=== PATIENT | female | born 1970 | race Caucasian/White ===

== ENCOUNTER 2018-07-21 07:37 | Day surgery (SDC) | payer OTHER ==
[~2018-07-21] VITALS: Ht 154.9 cm; Wt 82.7 kg
[2018-07-21 08:20] VITALS: Ht 154.9 cm; Wt 82.7 kg
[2018-07-21] MEDS ORDERED: NO MEDS (08:27)
[2018-07-21 08:57] VITALS: BP 110/70; PULSE 72; RESP 18
[2018-07-21] MEDS ORDERED: MIDAZOLAM 1 MG/ML 2 ML INJ ONE ×2 (09:37)
[2018-07-21] MEDS ORDERED: FENTAnyl 50 MCG/ML VIAL ONE (09:37)
[2018-07-21 09:55] VITALS: BP 115/77; PULSE 80; RESP 18
== END 2018-07-21 12:50 | disposition home or self-care (01) ==
LOC: GIL 07:37
PROVIDERS: ATTEND Internal Medicine Gastroenterology
DX: Z12.11 Encounter for screening for malignant neoplasm of colon (principal); K64.8 Other hemorrhoids; K57.30 Diverticulosis of large intestine without perforation or abscess without bleeding
CPT/HCPCS: 45378; J2250; J3010; Z7610